=== PATIENT | female | born 1965 | race Caucasian/White ===

== ENCOUNTER 2023-08-03 16:31 | Inpatient (IN) ==
[2023-08-03 21:50] LABS: BASOPHILS # (AUTO) 0.1 X10^3/uL (0.0-0.1); BASOPHILS % (AUTO) 1.2 % (0.2-1.0); EOSINOPHILS # (AUTO) 0.3 x10^3/uL (0.0-0.2); EOSINOPHILS % (AUTO) 3.4 % (0.9-2.9); HEMATOCRIT 39.6 % (36.0-47.0); HEMOGLOBIN 13.3 g/dL (12.0-16.0); LYMPHOCYTES # (AUTO) 3.5 X10^3/uL (1.3-2.9); LYMPHOCYTES % (AUTO) 39.4 % (21.0-51.0); MEAN CORPUSCULAR HEMOGLOBIN 28.8 pg (27.0-34.0); MEAN CORPUSCULAR HGB CONC 33.7 g/dL (33.0-35.0); MEAN CORPUSCULAR VOLUME 85.5 fL (80.0-100.0); MEAN PLATELET VOLUME 8.4 fL (7.4-11.0); MONOCYTES # (AUTO) 0.6 x10^3/uL (0.3-0.8); MONOCYTES % (AUTO) 6.7 % (0.0-13.0); NEUTROPHILS # (AUTO) 4.4 x10^3/uL (2.2-4.8); NEUTROPHILS % (AUTO) 49.3 % (42.0-75.0); PLATELET COUNT 193 X10^3/uL (150.0-450.0); RED BLOOD COUNT 4.63 X10^6/uL (3.5-5.4); RED CELL DISTRIBUTION WIDTH 13.7 % (11.6-16.5)
[2023-08-03 21:58] LABS: INR 1.05 (0.8-1.3)
[2023-08-03 22:03] LABS: ALANINE AMINOTRANSFERASE 25 Units/L (12-78); ALBUMIN 3.9 g/dL (3.4-5.0); ALKALINE PHOSPHATASE 99 Units/L (46-116); ASPARTATE AMINO TRANSFERASE 14 Units/L (15-37); BLOOD UREA NITROGEN 12 mg/dL (7-18); CALCIUM 9.2 mg/dL (8.5-10.1); CARBON DIOXIDE 24.8 mmol/L (21-32); CHLORIDE 103 mmol/L (98-107); COR NA(FOR HYPERGLY) 138 mmol/L (136-145); CREATININE 0.86 mg/dL (0.55-1.02); GLUCOSE 156 mg/dL (65-99); POTASSIUM 3.7 mmol/L (3.5-5.1); SODIUM 137 mmol/L (136-145); TOTAL PROTEIN 7.7 g/dL (6.4-8.2); eGFR NON BLACK RACES > 60 (>60)
[2023-08-03 22:16] VITALS: BMI 27.6
[2023-08-03] MEDS: HEPARIN SODIUM IN D5W 25,000 UNITS/500 ML BAG IV PRN (23:00)
[2023-08-03] MEDS: LR 1,000 ML IV 1,000 ML IV SCH (23:01)
[2023-08-03] MEDS: HEPARIN SODIUM INJ 5000 UNITS IVP ONE (23:01)
[2023-08-03] MEDS: NICOTINE PATCH TD SCH (23:05)
[2023-08-03] MEDS: ABILIFY PO SCH (23:15)
[2023-08-03] MEDS: NEURONTIN CAP 300 MG PO SCH (23:16)
--- NOTE | 2023-08-04 00:09 | DR.H&P ---
H&P History & Physical for Day of: H&P Date: 08/03/23 Chief Complaint Chief Complaint: 58 yo female with significant history of diabetes and tobacco abuse whom was seen in office last week c/o rest pain both legs and ABIs of about 0.5 both legs. Had CTA showing complete occlusion of both external iliac arteries with reconstitution of both femoral arteries with essentially normal runoff both legs. C/O dependent rubor . Allergies Allergies Allergy/AdvReac Type Severity Reaction Status Date / Time No Known Drug Allergies Allergy Verified 08/03/23 22:17 [NKDA] History of Present Illness History of Present Illness: as above Past Medical History Past Medical History: Depression, Diabetes, Hypertension and Hypothyroidism Past Surgical History Surgical History: Ortho Surgery Additional Surgical History: tubal ligation Family History Family Medical History: Cancer and Hypertension Social History Does patient currently use any type of tobacco product: Yes Have you used tobacco products in the last 12 months: Yes Type of Tobacco Use: Cigarettes How many years tobacco product used: 25 Does any household member use tobacco: No Alcohol Use: None Drug Use: None Medications Home Medications: Novulin 70/30, Tresiba, aspirin, gapapentin, Venlafaxine , Abilify, Metformin, Glipizide, amlodipine , levothyroxine Labs 08/03/23 21:40 08/03/23 21:40 Labs: Laboratory WBC 9.0 X10^3/uL (3.6-10.0) 08/03/23 21:40 RBC 4.63 X10^6/uL (3.5-5.4) 08/03/23 21:40 Hgb 13.3 g/dL (12.0-16.0) 08/03/23 21:40 Hct 39.6 % (36.0-47.0) 08/03/23 21:40 MCV 85.5 fL (80.0-100.0) 08/03/23 21:40 MCH 28.8 pg (27.0-34.0) 08/03/23 21:40 MCHC 33.7 g/dL (33.0-35.0) 08/03/23 21:40 RDW 13.7 % (11.6-16.5) 08/03/23 21:40 Plt Count 193 X10^3/uL (150.0-450.0) 08/03/23 21:40 MPV 8.4 fL (7.4-11.0) 08/03/23 21:40 Neut % (Auto) 49.3 % (42.0-75.0) 08/03/23 21:40 Lymph % (Auto) 39.4 % (21.0-51.0) 08/03/23 21:40 [place] % (Auto) 6.7 % (0.0-13.0) 08/03/23 21:40 Eos % (Auto) 3.4 % (0.9-2.9) H 08/03/23 21:40 Baso % (Auto) 1.2 % (0.2-1.0) H 08/03/23 21:40 Neut # (Auto) 4.4 x10^3/uL (2.2-4.8) 08/03/23 21:40 Lymph # (Auto) 3.5 X10^3/uL (1.3-2.9) H 08/03/23 21:40 [place] # (Auto) 0.6 x10^3/uL (0.3-0.8) 08/03/23 21:40 Eos # (Auto) 0.3 x10^3/uL (0.0-0.2) H 08/03/23 21:40 Baso # (Auto) 0.1 X10^3/uL (0.0-0.1) 08/03/23 21:40 Absolute Nucleated RBC 0.1 /100WBC 08/03/23 21:40 PT 13.5 SECONDS (11.8-14.3) 08/03/23 21:40 INR Target Range - 08/03/23 21:40 INR 1.05 (0.8-1.3) 08/03/23 21:40 APTT 32.2 SECONDS (22.9-36.5) 08/03/23 21:40 PTT Comment - 08/03/23 21:40 Sodium 137 mmol/L (136-145) 08/03/23 21:40 Corrected Sodium 138 mmol/L (136-145) 08/03/23 21:40 Potassium 3.7 mmol/L (3.5-5.1) 08/03/23 21:40 Chloride 103 mmol/L (98-107) 08/03/23 21:40 Carbon Dioxide 24.8 mmol/L (21-32) 08/03/23 21:40 BUN 12 mg/dL (7-18) 08/03/23 21:40 Creatinine 0.86 mg/dL (0.55-1.02) 08/03/23 21:40 Est GFR (MDRD) Af Amer > 60 (>60) 08/03/23 21:40 Est GFR (MDRD) Non-Af > 60 (>60) 08/03/23 21:40 Glucose 156 mg/dL (65-99) H 08/03/23 21:40 Calcium 9.2 mg/dL (8.5-10.1) 08/03/23 21:40 Corrected Calcium TNP 08/03/23 21:40 Total Bilirubin 0.20 mg/dL (0.2-1.0) 08/03/23 21:40 AST 14 Units/L (15-37) L 08/03/23 21:40 ALT 25 Units/L (12-78) 08/03/23 21:40 Alkaline Phosphatase 99 Units/L (46-116) 08/03/23 21:40 Total Protein 7.7 g/dL (6.4-8.2) 08/03/23 21:40 Albumin 3.9 g/dL (3.4-5.0) 08/03/23 21:40 Globulin 3.8 g/dL (2.5-4.5) 08/03/23 21:40 Albumin/Globulin Ratio 1.0 Ratio (1.1-2.1) L 08/03/23 21:40 Review of Systems Constitutional: See HPI Eyes: No Symptoms Reported ENT: No Symptoms Reported Respiratory: No Symptoms Reported Cardiovascular: No Symptoms Reported Gastrointestinal: No Symptoms Reported Genitourinary: No Symptoms Reported Musculoskeletal: No Symptoms Reported Skin: No Symptoms Reported Neurological: No Symptoms Reported Physical Exam Vital Signs: Vital Signs Temperature 98.0 F Temperature 98.0 F Pulse Rate [Left Radial] 64 Pulse Rate 62 Pulse Rate 66 Pulse Rate 64 Respiratory Rate 17 Respiratory Rate 16 Respiratory Rate 16 Respiratory Rate 16 Blood Pressure [Right Arm] 170/73 Blood Pressure 167/72 Blood Pressure 174/74 Blood Pressure 170/73 O2 Sat by Pulse Oximetry 98 O2 Sat by Pulse Oximetry 100 O2 Sat by Pulse Oximetry 100 O2 Sat by Pulse Oximetry 100 Oriented: Normal, Time, Person and Place Eyes: Normal; negative Blurred Vision Ear: Normal Nose: Normal Throat: Normal Respiratory: Clear Throughout Cardiovascular: Normal and Other (absent femoral pulses b/l, absent PT and DP pulse b/l) : Normal Auscultation: Bowel Sounds: Normal Palpation: Normal Tenderness: Normal Skin: Other (both feet cool, no wounds of legs, dependent rubor both feet. ) Musculoskeletal: Normal Psychiatric: Normal Mood Description: Calm Affect: Normal Speech Pattern: Clear Assessment/Plan (1) Atherosclerosis of [place] arteries of extremities with rest pain, right leg: Status: Acute Plan: Aortogram, arteriogram attempt b/l iliac artery stenting (2) Atherosclerosis of [place] arteries of extremities with rest pain, left leg: Status: Acute Plan: as above (3) Iliac artery occlusion, bilateral: Status: Acute Plan: as above (4) Type 2 diabetes mellitus without complications: Status: Acute Plan: sliding scale insulin (5) Essential (primary) hypertension: Status: Acute Plan: home medications (6) Depression: Status: Acute Plan: home medications (7) Hypothyroid: Status: Acute Plan: home medications
--- NOTE | 2023-08-04 04:33 | EKG ---
Test Reason : Surgery Blood Pressure : */* mmHG Vent. Rate : 65 BPM Atrial Rate : 65 BPM P-R Int : 168 ms QRS Dur : 80 ms QT Int : 438 ms P-R-T Axes : 78 72 96 degrees QTc Int : 455 ms Normal sinus rhythm Normal ECG No previous ECGs available Confirmed by Panchito Brooks MD ([id number]) on 08/04/2023 7:30:04 AM Referred By: Confirmed By: Panchito Brooks MD
--- NOTE | 2023-08-04 05:43 | RAD ---
EXAM:CHEST, 1 VIEWHISTORY:PRE OP-MABEL CRITICAL ISCHEMIA ; HTN, DM SX: ORTHO, TUBALCOMPARISON:NoneFINDINGS:The cardiomediastinal silhouette is normal in size.No acute airspace disease. No pneumothorax or effusion.No acute osseous abnormality.IMPRESSION:No acute cardiopulmonary disease.THIS IS AN ELECTRONICALLY VERIFIED FINAL REPORT08/04/2023 5:40 AM - Electronically signed by Aidan Medina MD
[2023-08-04] MEDS: SYNTHROID 50 mcg TAB PO SCH (05:46)
[2023-08-04] MEDS: HIBICLENS WASH EXT ONE (05:56)
[2023-08-04] MEDS: ASPIRIN EC 81 MG PO SCH (08:40)
[2023-08-04] MEDS: EFFEXOR XR 150 MG CAP 24-HR PO SCH (08:40)
[2023-08-04] MEDS: NORVASC TAB 10 MG PO SCH (09:33)
[2023-08-04] MEDS: NS 1,000 ML IV 1,000 ML ONE (10:02)
[2023-08-04] MEDS: KETAMINE 50 MG/5 ML-NACL SYRNG ONE (10:46)
[2023-08-04] MEDS ORDERED: PRECEDEX INJ VIAL ONE (10:46)
[2023-08-04] MEDS: ZOFRAN INJ 4 MG VIAL ONE (10:46)
[2023-08-04] MEDS ORDERED: ULTANE GAS IN ONE (10:46)
[2023-08-04] MEDS: DIPRIVAN VIAL 20 ML ONE ×2 (10:46)
[2023-08-04] MEDS: PEPCID 20 MG VIAL ONE (10:46)
[2023-08-04] MEDS ORDERED: XYLOCAINE 2 % (PLAIN) ONE (10:46)
[2023-08-04] MEDS: VERSED ONE (10:46)
[2023-08-04] MEDS: FENTANYL VIAL INJ 100 mcg ONE (10:46)
[2023-08-04] MEDS: NS 100 ML IV 100 ML ONE (10:52)
[2023-08-04] MEDS: ANCEF VIAL 1 GRAM ONE (10:52)
[2023-08-04] MEDS: VISIPAQUE 50 ML ONE (11:16)
[2023-08-04] MEDS: MARCAINE 0.5% ONE (11:22)
[2023-08-04] MEDS: VISIPAQUE 100 ML ONE (11:22)
[2023-08-04] MEDS: HEPARIN SODIUM IN D5W 75,000 UNITS/1,500 ML BAG ONE (11:22)
[2023-08-04] MEDS: HEPARIN SODIUM INJ 5000 UNITS ONE ×2 (11:23→13:25)
[2023-08-04] MEDS: NEO-SYNEPHRINE INJ ONE ×2 (11:26→12:45)
[2023-08-04] MEDS: ROBINUL ONE ×2 (11:28→13:11)
[2023-08-04] MEDS: HESPAN IV IN NS 500 ML IV ONE (13:00)
[2023-08-04] MEDS ORDERED: BARHEMSYS INJ IVP PRN (14:00)
[2023-08-04] MEDS ORDERED: BENADRYL INJ 50 MG VIAL IVP PRN (14:00)
[2023-08-04] MEDS: DILAUDID INJ IVP PRN ×2 (14:13→19:53)
--- NOTE | 2023-08-04 14:13 | OR.IMMED ---
IMMEDIATE POST-OP NOTE Immediate Post-Op Note Date of surgery/procedure: 08/04/23 Pre-Op Diagnosis: B/L External iliac artery occlusion with critical ischemia both legs Post-Op Diagnosis: same Procedure: aortogram, stenting right external artery , attempt to stent left external artery on successful Description of Procedure: see dictation Surgeon/Ginseng Farmer: Balbir Findings: completely excluded bilateral external iliac arteries ,patent common iliac arteries bilaterally, Patetent runoff both lower extremities beyond the femoral artery distally Estimated Blood Loss: 200cc Complications: none Discharge Progress Notes: Return to ICU, continue heparin drip, Need to re- evaluate for possible femoral femoral bypass vs additional attempt at revascularization of the left external iliac artetry from left brachial artery approach
[2023-08-04] MEDS: DILAUDID INJ ONE (14:48)
[2023-08-04] MEDS: NovoLIN R (or HumuLIN R) SC PRN (20:53)
[2023-08-05 05:51] LABS: BASOPHILS % (AUTO) 0.3 % (0.2-1.0); EOSINOPHILS # (AUTO) 0.1 x10^3/uL (0.0-0.2); EOSINOPHILS % (AUTO) 1.3 % (0.9-2.9); HEMATOCRIT 29.8 % (36.0-47.0); LYMPHOCYTES # (AUTO) 2.1 X10^3/uL (1.3-2.9); MEAN CORPUSCULAR HEMOGLOBIN 29.2 pg (27.0-34.0); MEAN CORPUSCULAR HGB CONC 33.8 g/dL (33.0-35.0); MEAN CORPUSCULAR VOLUME 86.3 fL (80.0-100.0); MEAN PLATELET VOLUME 8.6 fL (7.4-11.0); MONOCYTES # (AUTO) 0.7 x10^3/uL (0.3-0.8); MONOCYTES % (AUTO) 7.6 % (0.0-13.0); NEUTROPHILS % (AUTO) 66.8 % (42.0-75.0); PLATELET COUNT 165 X10^3/uL (150.0-450.0); RED BLOOD COUNT 3.46 X10^6/uL (3.5-5.4); RED CELL DISTRIBUTION WIDTH 14.1 % (11.6-16.5)
[2023-08-05 05:56] LABS: BLOOD UREA NITROGEN 9 mg/dL (7-18); CARBON DIOXIDE 25.9 mmol/L (21-32); CHLORIDE 104 mmol/L (98-107); COR NA(FOR HYPERGLY) 138 mmol/L (136-145); CREATININE 0.85 mg/dL (0.55-1.02); GLUCOSE 123 mg/dL (65-99); POTASSIUM 3.4 mmol/L (3.5-5.1); SODIUM 137 mmol/L (136-145); eGFR NON BLACK RACES > 60 (>60)
[2023-08-05 06:03] LABS: HEMOGLOBIN 10.1 g/dL (12.0-16.0)
[2023-08-05 08:20] VITALS: TEMP 99.7
[2023-08-05] MEDS: PERCOCET TAB 5/325 MG PO ONE (09:35)
--- NOTE | 2023-08-05 10:57 | W.DIS.FURT ---
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 I was able to get a wire across the occlusion of the right side and stented the right external iliac artery . She now has palpable pulses on the right side . I could not get out of a dissection plane in the left leg despite approaches from the left groin and the left ankle .Patients right foot is warm with palpable pulses. Left foot is warm at this time and there does appear to be good collateral flow around the obstruction.She will be discharged home on Percocet 5 milligram tablets ,1 every 6 hours PRN pain .She also will be on aspirin 81 milligrams daily and Xarelto 2.5 milligrams BID in addition to her usual medications . She will follow up in 1 week . I have already discussed the options of attempt in a few weeks once the dissection is healed from above via a left brachial approach versus planning a femoral femoral bypass, She would like to avoid the femoral femoral bypass and at this time I think that is reasonable .She will see me in follow up next week. Vital Signs: Vital Signs (72 hours) 08/03/23 21:31 08/03/23 21:05 08/03/23 21:00 Temperature 98.0 F 98.0 F Pulse Rate 64 Pulse Rate [Left Radial] 64 Respiratory Rate 16 16 Blood Pressure 170/73 Blood Pressure [Right Arm] 170/73 O2 Sat by Pulse Oximetry 100 100 Oxygen Delivery Method Room Air Room Air Room Air 08/03/23 22:00 08/03/23 23:00 08/04/23 00:00 Temperature 97.8 F Pulse Rate 66 62 63 Pulse Rate [Left Radial] Respiratory Rate 16 17 16 Blood Pressure 174/74 167/72 145/67 Blood Pressure [Right Arm] O2 Sat by Pulse Oximetry 100 98 96 Oxygen Delivery Method Room Air Room Air Room Air 08/04/23 01:00 08/04/23 02:00 08/04/23 03:00 Temperature Pulse Rate 65 64 65 Pulse Rate [Left Radial] Respiratory Rate 18 23 16 Blood Pressure 125/60 129/60 103/71 Blood Pressure [Right Arm] O2 Sat by Pulse Oximetry 94 L 96 94 L Oxygen Delivery Method Room Air Room Air Room Air 08/04/23 04:00 08/04/23 05:00 08/04/23 06:00 Temperature 97.9 F Pulse Rate 75 62 61 Pulse Rate [Left Radial] Respiratory Rate 17 16 18 Blood Pressure 116/67 112/56 104/51 Blood Pressure [Right Arm] O2 Sat by Pulse Oximetry 95 97 96 Oxygen Delivery Method Room Air Room Air Room Air 08/04/23 06:40 08/04/23 06:45 08/04/23 07:00 Temperature Pulse Rate 64 65 67 Pulse Rate [Left Radial] Respiratory Rate Blood Pressure Blood Pressure [Right Arm] O2 Sat by Pulse Oximetry 96 96 97 Oxygen Delivery Method 08/04/23 07:00 08/04/23 07:15 08/04/23 07:30 Temperature Pulse Rate 72 71 Pulse Rate [Left Radial] Respiratory Rate Blood Pressure 119/56 Blood Pressure [Right Arm] O2 Sat by Pulse Oximetry 97 97 Oxygen Delivery Method 08/04/23 07:45 08/04/23 08:00 08/04/23 08:01 Temperature Pulse Rate 71 73 65 Pulse Rate [Left Radial] Respiratory Rate Blood Pressure Blood Pressure [Right Arm] O2 Sat by Pulse Oximetry 98 97 99 Oxygen Delivery Method 08/04/23 08:01 08/04/23 08:15 08/04/23 08:30 Temperature Pulse Rate 74 64 Pulse Rate [Left Radial] Respiratory Rate Blood Pressure 133/76 Blood Pressure [Right Arm] O2 Sat by Pulse Oximetry 96 100 Oxygen Delivery Method 08/04/23 08:00 08/04/23 08:45 08/04/23 09:00 Temperature 97.6 F Pulse Rate 63 64 Pulse Rate [Left Radial] Respiratory Rate Blood Pressure Blood Pressure [Right Arm] O2 Sat by Pulse Oximetry 99 96 Oxygen Delivery Method 08/04/23 09:15 08/04/23 07:00 08/04/23 09:30 Temperature Pulse Rate 79 81 Pulse Rate [Left Radial] Respiratory Rate Blood Pressure Blood Pressure [Right Arm] O2 Sat by Pulse Oximetry 98 98 Oxygen Delivery Method Room Air 08/04/23 09:31 08/04/23 09:31 08/04/23 09:45 Temperature Pulse Rate 81 78 Pulse Rate [Left Radial] Respiratory Rate Blood Pressure 166/73 Blood Pressure [Right Arm] O2 Sat by Pulse Oximetry 95 100 Oxygen Delivery Method 08/04/23 10:15 08/04/23 13:51 08/04/23 14:06 Temperature 97.1 F L Pulse Rate 61 115 H 84 Pulse Rate [Left Radial] Respiratory Rate 18 16 17 Blood Pressure 162/74 90/42 104/55 Blood Pressure [Right Arm] O2 Sat by Pulse Oximetry 97 100 100 Oxygen Delivery Method Room Air Aerosol Face Tent Aerosol Face Tent 08/04/23 13:56 08/04/23 14:01 08/04/23 14:13 Temperature Pulse Rate 80 81 Pulse Rate [Left Radial] Respiratory Rate 16 16 18 Blood Pressure 103/51 110/51 Blood Pressure [Right Arm] O2 Sat by Pulse Oximetry 99 99 Oxygen Delivery Method Aerosol Face Tent Aerosol Face Tent 08/04/23 14:11 08/04/23 14:16 08/04/23 14:21 Temperature Pulse Rate 81 76 76 Pulse Rate [Left Radial] Respiratory Rate 18 18 18 Blood Pressure 94/46 93/45 91/46 Blood Pressure [Right Arm] O2 Sat by Pulse Oximetry 95 95 97 Oxygen Delivery Method Room Air Room Air Nasal Cannula 08/04/23 14:43 08/04/23 14:33 08/04/23 14:33 Temperature Pulse Rate 76 Pulse Rate [Left Radial] Respiratory Rate 18 Blood Pressure 103/56 Blood Pressure [Right Arm] O2 Sat by Pulse Oximetry Oxygen Delivery Method 08/04/23 14:45 08/04/23 15:00 08/04/23 15:02 Temperature Pulse Rate 77 74 Pulse Rate [Left Radial] Respiratory Rate 18 15 Blood Pressure 106/54 Blood Pressure [Right Arm] O2 Sat by Pulse Oximetry 99 100 Oxygen Delivery Method 08/04/23 15:02 08/04/23 15:15 08/04/23 15:16 Temperature Pulse Rate 76 78 79 Pulse Rate [Left Radial] Respiratory Rate 17 18 14 Blood Pressure Blood Pressure [Right Arm] O2 Sat by Pulse Oximetry 99 100 99 Oxygen Delivery Method 08/04/23 15:16 08/04/23 15:30 08/04/23 15:31 Temperature Pulse Rate 74 75 Pulse Rate [Left Radial] Respiratory Rate 20 16 Blood Pressure 119/56 Blood Pressure [Right Arm] O2 Sat by Pulse Oximetry 100 99 Oxygen Delivery Method 08/04/23 15:31 08/04/23 15:45 08/04/23 15:45 Temperature Pulse Rate 78 Pulse Rate [Left Radial] Respiratory Rate 16 Blood Pressure 103/51 117/53 Blood Pressure [Right Arm] O2 Sat by Pulse Oximetry 99 Oxygen Delivery Method 08/04/23 16:00 08/04/23 16:00 08/04/23 16:15 Temperature Pulse Rate 81 78 Pulse Rate [Left Radial] Respiratory Rate 18 21 Blood Pressure 119/56 Blood Pressure [Right Arm] O2 Sat by Pulse Oximetry 100 99 Oxygen Delivery Method 08/04/23 16:15 08/04/23 16:30 08/04/23 16:31 Temperature Pulse Rate 79 Pulse Rate [Left Radial] Respiratory Rate 19 Blood Pressure 108/53 124/54 Blood Pressure [Right Arm] O2 Sat by Pulse Oximetry 98 Oxygen Delivery Method 08/04/23 16:31 08/04/23 16:45 08/04/23 16:45 Temperature Pulse Rate 76 77 Pulse Rate [Left Radial] Respiratory Rate 26 H 17 Blood Pressure 110/51 Blood Pressure [Right Arm] O2 Sat by Pulse Oximetry 99 99 Oxygen Delivery Method 08/04/23 17:00 08/04/23 17:01 08/04/23 17:01 Temperature Pulse Rate 78 83 Pulse Rate [Left Radial] Respiratory Rate 20 19 Blood Pressure 105/55 Blood Pressure [Right Arm] O2 Sat by Pulse Oximetry 99 99 Oxygen Delivery Method 08/04/23 17:15 08/04/23 17:16 08/04/23 17:16 Temperature Pulse Rate 78 77 Pulse Rate [Left Radial] Respiratory Rate 15 21 Blood Pressure 97/46 Blood Pressure [Right Arm] O2 Sat by Pulse Oximetry 99 100 Oxygen Delivery Method 08/04/23 17:30 08/04/23 17:31 08/04/23 17:31 Temperature Pulse Rate 81 82 Pulse Rate [Left Radial] Respiratory Rate 20 19 Blood Pressure 101/55 Blood Pressure [Right Arm] O2 Sat by Pulse Oximetry 100 100 Oxygen Delivery Method 08/04/23 17:45 08/04/23 17:46 08/04/23 17:46 Temperature Pulse Rate 81 80 Pulse Rate [Left Radial] Respiratory Rate 19 18 Blood Pressure 127/55 Blood Pressure [Right Arm] O2 Sat by Pulse Oximetry 100 100 Oxygen Delivery Method 08/04/23 18:00 08/04/23 14:30 08/04/23 16:30 Temperature 97.8 F 98.0 F Pulse Rate 90 Pulse Rate [Left Radial] Respiratory Rate 22 Blood Pressure Blood Pressure [Right Arm] O2 Sat by Pulse Oximetry 100 Oxygen Delivery Method 08/04/23 19:53 08/05/23 00:49 08/04/23 19:00 Temperature Pulse Rate Pulse Rate [Left Radial] Respiratory Rate 25 H 20 Blood Pressure Blood Pressure [Right Arm] O2 Sat by Pulse Oximetry Oxygen Delivery Method Room Air 08/04/23 20:23 08/04/23 19:00 08/04/23 20:00 Temperature 97.8 F Pulse Rate 86 83 Pulse Rate [Left Radial] Respiratory Rate 16 14 15 Blood Pressure 116/53 142/57 Blood Pressure [Right Arm] O2 Sat by Pulse Oximetry 100 99 Oxygen Delivery Method Room Air Room Air 08/04/23 21:00 08/04/23 22:00 08/04/23 23:00 Temperature Pulse Rate 82 88 72 Pulse Rate [Left Radial] Respiratory Rate 15 16 16 Blood Pressure 102/59 85/45 137/65 Blood Pressure [Right Arm] O2 Sat by Pulse Oximetry 99 99 99 Oxygen Delivery Method Room Air Room Air Room Air 08/03/23 18:30 08/03/23 19:30 08/05/23 00:00 Temperature 98.0 F 97.8 F 99.3 F Pulse Rate 84 97 H 74 Pulse Rate [Left Radial] Respiratory Rate 21 24 17 Blood Pressure 121/55 161/78 139/63 Blood Pressure [Right Arm] O2 Sat by Pulse Oximetry 99 100 100 Oxygen Delivery Method Nasal Cannula Room Air Room Air 08/05/23 01:00 08/05/23 01:19 08/05/23 02:00 Temperature Pulse Rate 76 76 Pulse Rate [Left Radial] Respiratory Rate 13 13 13 Blood Pressure 106/51 99/47 Blood Pressure [Right Arm] O2 Sat by Pulse Oximetry 97 97 Oxygen Delivery Method Room Air Room Air 08/05/23 03:00 08/05/23 04:00 08/05/23 05:00 Temperature 98.4 F Pulse Rate 72 74 92 H Pulse Rate [Left Radial] Respiratory Rate 14 14 21 Blood Pressure 106/53 107/63 129/62 Blood Pressure [Right Arm] O2 Sat by Pulse Oximetry 98 99 97 Oxygen Delivery Method Room Air Room Air 08/05/23 06:00 08/04/23 22:15 08/04/23 22:30 Temperature Pulse Rate 84 75 70 Pulse Rate [Left Radial] Respiratory Rate 22 16 15 Blood Pressure 117/55 Blood Pressure [Right Arm] O2 Sat by Pulse Oximetry 93 L 99 99 Oxygen Delivery Method Room Air 08/04/23 22:45 08/04/23 23:00 08/04/23 23:01 Temperature Pulse Rate 72 72 72 Pulse Rate [Left Radial] Respiratory Rate 16 15 16 Blood Pressure Blood Pressure [Right Arm] O2 Sat by Pulse Oximetry 99 99 99 Oxygen Delivery Method 08/04/23 23:01 08/04/23 23:15 08/04/23 23:30 Temperature Pulse Rate 68 71 Pulse Rate [Left Radial] Respiratory Rate 16 17 Blood Pressure 137/65 Blood Pressure [Right Arm] O2 Sat by Pulse Oximetry 100 100 Oxygen Delivery Method 08/04/23 23:45 08/05/23 00:00 08/05/23 00:00 Temperature Pulse Rate 72 73 Pulse Rate [Left Radial] Respiratory Rate 19 17 Blood Pressure 139/63 Blood Pressure [Right Arm] O2 Sat by Pulse Oximetry 100 100 Oxygen Delivery Method 08/05/23 00:15 08/05/23 00:30 08/05/23 00:45 Temperature Pulse Rate 73 74 75 Pulse Rate [Left Radial] Respiratory Rate 18 17 17 Blood Pressure Blood Pressure [Right Arm] O2 Sat by Pulse Oximetry 100 100 100 Oxygen Delivery Method 08/05/23 01:00 08/05/23 01:01 08/05/23 01:01 Temperature Pulse Rate 75 76 Pulse Rate [Left Radial] Respiratory Rate 12 13 Blood Pressure 106/51 Blood Pressure [Right Arm] O2 Sat by Pulse Oximetry 97 97 Oxygen Delivery Method 08/05/23 01:15 08/05/23 01:30 08/05/23 01:45 Temperature Pulse Rate 78 79 77 Pulse Rate [Left Radial] Respiratory Rate 14 14 14 Blood Pressure Blood Pressure [Right Arm] O2 Sat by Pulse Oximetry 97 97 98 Oxygen Delivery Method 08/05/23 02:00 08/05/23 02:00 08/05/23 02:15 Temperature Pulse Rate 76 77 Pulse Rate [Left Radial] Respiratory Rate 13 14 Blood Pressure 99/47 Blood Pressure [Right Arm] O2 Sat by Pulse Oximetry 97 97 Oxygen Delivery Method 08/05/23 02:30 08/05/23 02:45 08/05/23 03:00 Temperature Pulse Rate 75 74 Pulse Rate [Left Radial] Respiratory Rate 14 14 Blood Pressure 106/53 Blood Pressure [Right Arm] O2 Sat by Pulse Oximetry 97 98 Oxygen Delivery Method 08/05/23 03:00 08/05/23 03:15 08/05/23 03:30 Temperature Pulse Rate 72 71 73 Pulse Rate [Left Radial] Respiratory Rate 14 13 14 Blood Pressure Blood Pressure [Right Arm] O2 Sat by Pulse Oximetry 98 98 98 Oxygen Delivery Method 08/05/23 03:45 08/05/23 04:00 08/05/23 04:00 Temperature Pulse Rate 72 71 Pulse Rate [Left Radial] Respiratory Rate 14 15 Blood Pressure 107/53 Blood Pressure [Right Arm] O2 Sat by Pulse Oximetry 98 99 Oxygen Delivery Method 08/05/23 04:15 08/05/23 04:30 08/05/23 04:45 Temperature Pulse Rate 73 78 74 Pulse Rate [Left Radial] Respiratory Rate 14 14 14 Blood Pressure Blood Pressure [Right Arm] O2 Sat by Pulse Oximetry 99 99 98 Oxygen Delivery Method 08/05/23 05:00 08/05/23 05:01 08/05/23 05:01 Temperature Pulse Rate 75 75 Pulse Rate [Left Radial] Respiratory Rate 15 17 Blood Pressure 129/62 Blood Pressure [Right Arm] O2 Sat by Pulse Oximetry 99 99 Oxygen Delivery Method 08/05/23 05:15 08/05/23 05:30 08/05/23 05:45 Temperature Pulse Rate 91 H 79 82 Pulse Rate [Left Radial] Respiratory Rate 20 19 34 H Blood Pressure Blood Pressure [Right Arm] O2 Sat by Pulse Oximetry 97 98 93 L Oxygen Delivery Method 08/05/23 06:00 08/05/23 06:01 08/05/23 06:01 Temperature Pulse Rate 76 75 Pulse Rate [Left Radial] Respiratory Rate 23 24 Blood Pressure 117/55 Blood Pressure [Right Arm] O2 Sat by Pulse Oximetry 93 L 94 L Oxygen Delivery Method 08/05/23 06:15 08/05/23 06:30 08/05/23 06:45 Temperature Pulse Rate 81 79 80 Pulse Rate [Left Radial] Respiratory Rate 20 21 21 Blood Pressure Blood Pressure [Right Arm] O2 Sat by Pulse Oximetry 93 L 94 L 94 L Oxygen Delivery Method 08/05/23 07:00 08/05/23 07:00 08/05/23 07:15 Temperature Pulse Rate 80 82 Pulse Rate [Left Radial] Respiratory Rate 21 24 Blood Pressure 117/56 Blood Pressure [Right Arm] O2 Sat by Pulse Oximetry 95 96 Oxygen Delivery Method 08/05/23 07:00 08/05/23 07:30 08/05/23 07:45 Temperature Pulse Rate 82 85 Pulse Rate [Left Radial] Respiratory Rate 23 28 H Blood Pressure Blood Pressure [Right Arm] O2 Sat by Pulse Oximetry 97 97 Oxygen Delivery Method Room Air 08/05/23 08:00 08/05/23 08:00 08/05/23 08:15 Temperature 99.7 F H Pulse Rate 85 84 Pulse Rate [Left Radial] Respiratory Rate 25 H 27 H Blood Pressure 132/60 Blood Pressure [Right Arm] O2 Sat by Pulse Oximetry 96 96 Oxygen Delivery Method 08/05/23 08:30 08/05/23 08:45 08/05/23 09:00 Temperature Pulse Rate 86 97 H 95 H Pulse Rate [Left Radial] Respiratory Rate 25 H 19 26 H Blood Pressure Blood Pressure [Right Arm] O2 Sat by Pulse Oximetry 97 97 95 Oxygen Delivery Method 08/05/23 09:00 08/05/23 09:15 08/05/23 09:35 Temperature Pulse Rate 90 Pulse Rate [Left Radial] Respiratory Rate 28 H 22 Blood Pressure 142/63 Blood Pressure [Right Arm] O2 Sat by Pulse Oximetry 95 Oxygen Delivery Method 08/05/23 09:30 08/05/23 09:45 08/05/23 10:00 Temperature Pulse Rate 90 98 H 93 H Pulse Rate [Left Radial] Respiratory Rate 25 H 21 24 Blood Pressure Blood Pressure [Right Arm] O2 Sat by Pulse Oximetry 96 96 96 Oxygen Delivery Method 08/05/23 10:01 08/05/23 10:01 Temperature Pulse Rate 90 Pulse Rate [Left Radial] Respiratory Rate 25 H Blood Pressure 147/63 Blood Pressure [Right Arm] O2 Sat by Pulse Oximetry 96 Oxygen Delivery Method Labs: Laboratory Last Values WBC 9.0 X10^3/uL (3.6-10.0) 08/05/23 05:30 RBC 3.46 X10^6/uL (3.5-5.4) L 08/05/23 05:30 Hgb 10.1 g/dL (12.0-16.0) L D 08/05/23 05:30 Hct 29.8 % (36.0-47.0) L 08/05/23 05:30 MCV 86.3 fL (80.0-100.0) 08/05/23 05:30 MCH 29.2 pg (27.0-34.0) 08/05/23 05:30 MCHC 33.8 g/dL (33.0-35.0) 08/05/23 05:30 RDW 14.1 % (11.6-16.5) 08/05/23 05:30 Plt Count 165 X10^3/uL (150.0-450.0) 08/05/23 05:30 MPV 8.6 fL (7.4-11.0) 08/05/23 05:30 Neut % (Auto) 66.8 % (42.0-75.0) 08/05/23 05:30 Lymph % (Auto) 24.0 % (21.0-51.0) 08/05/23 05:30 [place] % (Auto) 7.6 % (0.0-13.0) 08/05/23 05:30 Eos % (Auto) 1.3 % (0.9-2.9) 08/05/23 05:30 Baso % (Auto) 0.3 % (0.2-1.0) 08/05/23 05:30 Neut # (Auto) 6.0 x10^3/uL (2.2-4.8) H 08/05/23 05:30 Lymph # (Auto) 2.1 X10^3/uL (1.3-2.9) 08/05/23 05:30 [place] # (Auto) 0.7 x10^3/uL (0.3-0.8) 08/05/23 05:30 Eos # (Auto) 0.1 x10^3/uL (0.0-0.2) 08/05/23 05:30 Baso # (Auto) 0.0 X10^3/uL (0.0-0.1) 08/05/23 05:30 Absolute Nucleated RBC 0.0 /100WBC 08/05/23 05:30 PT 13.5 SECONDS (11.8-14.3) 08/03/23 21:40 INR Target Range - 08/03/23 21:40 INR 1.05 (0.8-1.3) 08/03/23 21:40 APTT 81.9 SECONDS (22.9-36.5) H 08/05/23 05:30 PTT Comment - 08/05/23 05:30 Sodium 137 mmol/L (136-145) 08/05/23 05:30 Corrected Sodium 138 mmol/L (136-145) 08/05/23 05:30 Potassium 3.4 mmol/L (3.5-5.1) L 08/05/23 05:30 Chloride 104 mmol/L (98-107) 08/05/23 05:30 Carbon Dioxide 25.9 mmol/L (21-32) 08/05/23 05:30 BUN 9 mg/dL (7-18) 08/05/23 05:30 Creatinine 0.85 mg/dL (0.55-1.02) 08/05/23 05:30 Est GFR (MDRD) Af Amer > 60 (>60) 08/05/23 05:30 Est GFR (MDRD) Non-Af > 60 (>60) 08/05/23 05:30 Glucose 123 mg/dL (65-99) H 08/05/23 05:30 POC Glucose (mg/dL) 147 mg/dL (65-99) H 08/05/23 05:44 Calcium 8.0 mg/dL (8.5-10.1) L 08/05/23 05:30 Corrected Calcium TNP 08/03/23 21:40 Total Bilirubin 0.20 mg/dL (0.2-1.0) 08/03/23 21:40 AST 14 Units/L (15-37) L 08/03/23 21:40 ALT 25 Units/L (12-78) 08/03/23 21:40 Alkaline Phosphatase 99 Units/L (46-116) 08/03/23 21:40 Total Protein 7.7 g/dL (6.4-8.2) 08/03/23 21:40 Albumin 3.9 g/dL (3.4-5.0) 08/03/23 21:40 Globulin 3.8 g/dL (2.5-4.5) 08/03/23 21:40 Albumin/Globulin Ratio 1.0 Ratio (1.1-2.1) L 08/03/23 21:40 Impression: see hospital course Reason For Visit: BILATERAL CRITICAL [place] Discharge Date Discharge Date: 08/05/23 Discharge Diagnosis All Active Problems (Updated 08/04/23 @ 00:05 by Silver Granados) Iliac artery occlusion, bilateral (Acute) Atherosclerosis of [place] arteries of extremities with rest pain, left leg (Acute) Atherosclerosis of [place] arteries of extremities with rest pain, right leg (Acute) Hypothyroid (Acute) Depression (Acute) Essential (primary) hypertension (Acute) Type 2 diabetes mellitus without complications (Acute) Plan of Treatment: Continue with present treatment and follow up plan. Pt is to keep follow up appointment as instructed and take medications as ordered. Discharge Medications Discharge Medications: No Known Drug Allergies [NKDA] Allergy (Verified 08/03/23 22:17) CONTINUE taking the following medications amlodipine 10 mg tablet 10 mg PO QDAY 08/04/23 [History] aripiprazole 15 mg tablet 15 mg PO QDAY 08/04/23 [History] aspirin 81 mg tablet,delayed release 81 mg PO QDAY 08/04/23 [History] gabapentin 400 mg capsule 400 mg PO BID 08/04/23 [History] insulin degludec 100 unit/mL subcutaneous solution (Tresiba U-100 Insulin) 14 unit subcut DAILY 08/04/23 [History] levothyroxine 25 mcg tablet 25 mcg PO QAM 08/04/23 [History] venlafaxine 150 mg capsule,extended release 24 hr 150 mg PO QDAY 08/04/23 [History] NEW Xarelto 2.5 mg po BID Aspirin 81 mg po daily Discharge Disposition Assessment: see hospital course Discharge Plan Discharge Plan Hospital Course: This 58 yo female had been seen in the office last week with severe rest pain of both lower extremities .CT angiogram obtained showed bilateral complete occlusions of the external iliac arteries .Due to fear of impending tissue loss the patient was admitted and placed on a Heparin drip .She was taken to the operating Suite on where aortogram showed bilateral external iliac occlusion with good runoff of both legs. I was able to get a wire across the occlusion of the right side and stented the right external iliac artery . She now has palpable pulses on the right side . I could not get out of a dissection plane in the left leg despite approaches from the left groin and the left ankle .Patients right foot is warm with palpable pulses. Left foot is warm at this time and there does appear to be good collateral flow around the obstruction.She will be discharged home on Percocet 5 milligram tablets ,1 every 6 hours PRN pain .She also will be on aspirin 81 milligrams daily and Xarelto 2.5 milligrams BID in addition to her usual medications . She will follow up in 1 week . I have already discussed the options of attempt in a few weeks once the dissection is healed from above via a left brachial approach versus planning a femoral femoral bypass, She would like to avoid the femoral femoral bypass and at this time I think that is reasonable .She will see me in follow up next week. Patient Disposition: 01 HOME, SELF-CARE Condition: Stable Health Concerns: Post Hospitalization: new medications and changes needed to prevent readmission or further decline. Pt educated and given instructions on all concerns. Care Plan Goals: Problem: Pain/Alteration in Comfort Goal: Improve/ Resolve Pain; Achieve Pain Tolerance Instructions: Take pain medications as prescribed. Contact your primary care provider if your pain is unrelieved or worsens. Follow up with primary care provider as directed. Plan of Treatment: Continue with present treatment and follow up plan. Pt is to keep follow up appointment as instructed and take medications as ordered. Assessment: see hospital course Prescription drug monitoring program results: PDMP reviewed with concerns identified Prescriptions: New oxycodone-acetaminophen [Percocet] 5-325 mg tablet 1 tab PO Q6H MDD 4 PRNQty: 30 0RF Xarelto 2.5 mg tablet 2.5 mg PO BID Qty: 180 0RF aspirin 81 mg tablet,chewable 81 mg PO QDAY Qty: 120 0RF Continued gabapentin 400 mg capsule 400 mg PO BID venlafaxine 150 mg capsule,extended release 24hr 150 mg PO QDAY aspirin 81 mg Tablet,Delayed Release (Dr/Ec) 81 mg PO QDAY levothyroxine 25 mcg tablet 25 mcg PO QAM amlodipine 10 mg tablet 10 mg PO QDAY aripiprazole 15 mg tablet 15 mg PO QDAY insulin degludec [Tresiba U-100 Insulin] 100 unit/mL Solution 14 unit SUBCUT DAILY Follow ups/Referrals Follow ups/Referrals: Silver Granados [Primary Care Provider] - 08/10/23 3:00 pm Instructions Instructions: Endovascular Therapy for Peripheral Vascular Disease, Care After Stand Alone Forms: Excuse From Work or School, Post Hospital Follow Up Care
[2023-08-05 11:12] VITALS: BP 130/59; PULSE 92; RESP 23; O2SAT 95
--- NOTE | 2023-08-08 10:46 | DR.OPNOTE ---
OP NOTE Pre-Op Diagnosis: B/L iliac external iliac artery occlusion, B/L critical ischemia Legs Post-Op Diagnosis: same Procedure Date Date Of Procedure: 08/04/23 Procedure: PROCEDURE : Diagnostic aortogram ,diagnostic arteriogram left leg ,stenting right external iliac artery , failed attempt at stenting left external iliac artery NARRATIVE: The patient was taken to the operative suite and placed in the Supine position. The patient was given intravenous sedation supervised by myself .Both groins and the entire left leg were prepped and draped in sterile fashion .Timeout for the procedure obtained. Ultrasound used to identify the left common femoral artery and the skin overlying it infiltrated with 0.5% Marcaine .Ultrasound used to guide puncture of the left common femoral artery and a 0.012 inch wire placed .Incision made over the guide wire at the skin edge and a micro sheath placed over the guide wire into the left femoral artery .The small guidewire exchanged for a 0.035 inch [employer] [place] wire and the micro sheath exchanged for a 5 [place] vascular sheath .Patient given 5,000 units of intravenous heparin .Multiple attempts were made to pass a wire through the occluded iliac artery into the aorta after doing arteriogram through the sheath. This was unsuccessful after multiple attempts .Ultrasound used to identify the right common femoral artery and the skin overlying it infiltrated with 0.5% Marcaine .Ultrasound used to guide puncture of the right common femoral artery and a 0.012 inch wire placed .Incision made over this wire at the skin edge with a number 11 knife blade and a micro sheath placed over the guide wire into the right femoral artery .Arteriogram through the sheath confirmed the total occlusion of the external iliac artery on the right side with a patent distal aorta .This small guide wire on the right side exchanged for a 0.035 inch Advantage glidewire and the micro sheath exchanged for a 5 [place] vascular sheath. 0.035 inch wire was used to traverse the occlusion of the right external iliac artery into the aorta and diagnostic aortogram carried out confirming the occluded bilateral external iliac arteries. Both common iliac arteries were patent. Because both sides needed to be addressed we attempted to place a wire from the left ankle. Ultrasound used to identify the left posterior tibial artery and the skin overlying infiltrated with 0.5% Marcaine. Ultrasound used to guide puncture of the left posterior tibial artery and a 0.012 inch guide wire placed. Incision made at the skin edge over the wire with a number 11 knife blade and a graduated sheath placed over the guide wire into the posterior tibial artery . Arteriogram carried out sequentially of the left leg showing 3 vessel runoff,normal popliteal artery ,normal superficial femoral artery and normal common femoral artery .The left external iliac artery was occluded and again multiple attempts were made to get a wire across the external artery occlusion on the left side and were unsuccessful . We elected to stent the right side at this time and address the left side in another fashion in the future as the patient does have apparent flow in the common femoral artery based upon color flow ultrasound performed in the operating room .The 5 [place] sheath on the right side exchanged over the wire for a 7 [place] vascular sheath over the wire. We placed an [place]uv[place] 7 mm by 120 mm drug coated stent and positioned it over the area of occlusion of the right external iliac artery and deployed it .We then balloon dilated this stent with a 6 mm angioplasty balloon .Post- procedure arteriogram showed excellent results with good flow all the way through the right iliac artery .At the end of the case the patient had a palpable pulse at the right ankle .Wires and sheaths removed from both groins and the left ankle.Yhrough the sheath on the right side we placed the wire from an Angio seal device and exchanged the sheath for and the Angioseal device used to close the puncture of the right femoral artery.Direct pressure held over the left groin puncture for 10 minutes and a tibial band placed over the puncture of the left medial ankle .The heparin was not reversed .Patient taken back to the ICU in good condition . Type of Anesthesia: Local (0.5 Marcaine) Anesthesia Comment: plus MAC Findings: B/L external iliac artery occlusion Type of Fluids Used:: Lactated Ringers Total Amount of Fluid Infused:: 1000 cc Urine output: 400 cc EBL: 200cc Hardware: Keke 7mm x 120 mm drug coated stent Complications:: none Needle/Sponge Count:: rrect Disposition/Condition: Pt. tolerated procedure without difficulty. Taken to CCU in stable condition.
== END 2023-08-05 12:50 | disposition home or self-care (01) | DRG 253 ==
LOC: ICU 20:20
PROVIDERS: ADMIT Surgery; ATTEND Surgery
DX: E11.65 Type 2 diabetes mellitus with hyperglycemia; Z59.86 Financial insecurity; Z72.0 Tobacco use; E03.8 Other specified hypothyroidism; I10 Essential (primary) hypertension; F32.89 Other specified depressive episodes; I70.223 Atherosclerosis of native arteries of extremities with rest pain, bilateral legs; Z59.82 Transportation insecurity; I74.5 Embolism and thrombosis of iliac artery